=== PATIENT | female | born 1985 | race African-American/Black ===

== ENCOUNTER → 2018-03-28 | Outpatient (CLI) | payer OTHER ==
--- NOTE | 2018-03-28 20:11 | REP ---
Sacrum and coccyx series: Three views. History: Injury. Findings: There is no evidence of sacral or coccygeal fracture or displacement. Presacral and retro sacral soft tissues are unremarkable. Lumbosacral disc spaces are intact. SI joints are unremarkable. There is sacralization of the L5 transverse processes bilaterally. Impression: No fracture or displacement seen. Electronically Signed by Francisco J Garcia MD 03/29/2018 09:33 A
--- NOTE | 2018-03-28 20:11 | REP ---
Left knee series: Five views. History: Injury. Findings: Five views of the left knee demonstrate normal bones, joints, and soft tissues. No fracture or joint effusion is seen. Impression: Negative radiographs of the left knee. Electronically Signed by Francisco J Garcia MD 03/29/2018 09:32 A
== END ==
LOC: M LRY 14:31
PROVIDERS: ATTEND Physician Assistant
DX: S89.92XA Unspecified injury of left lower leg, initial encounter (principal); S39.92XA Unspecified injury of lower back, initial encounter

== ENCOUNTER → 2018-06-12 | Outpatient (REF) | payer OTHER ==
[2018-06-12 22:09] LABS: CHLAMYDIA DNA AMPLIFICATION NEGATIVE (NEGATIVE); GC DNA AMPLIFICATION NEGATIVE (NEGATIVE)
== END ==
LOC: M SFHCLERA 16:45
PROVIDERS: ATTEND Nurse Practitioner Family
DX: R53.81 Other malaise (principal); R30.0 Dysuria